=== PATIENT | female | born 1990 | race Caucasian/White ===

== ENCOUNTER 2016-12-17 15:53 | Inpatient (IN) | payer BC ==
[~2016-12-17] VITALS: Ht 162.6 cm; Wt 84.8 kg
[2016-12-17 18:39] VITALS: Ht 162.6 cm; Wt 84.8 kg
[2016-12-17 18:43] VITALS: BP 114/69; PULSE 94; RESP 18
[2016-12-17] MEDS ORDERED: PREN1TAB17 PO (18:47)
[2016-12-17] MEDS: LACTATED RINGER'S 1,000 ML IV SCH (18:58)
[2016-12-17] MEDS ORDERED: AMPICILLIN 2 GM/NS (PMX) 100 ML IV ONE (19:00)
[2016-12-17] MEDS ORDERED: LIDOCAINE 1% (MPF) 30 ML INJ INJ PRN (19:00)
[2016-12-17] MEDS ORDERED: BUTORPHANOL 2 MG INJ IV PRN (19:00)
[2016-12-17] MEDS ORDERED: OXYTOCIN 30 UNITS/LR 500 ML IV PRN (19:00)
[2016-12-17] MEDS ORDERED: MISOPROSTOL 200 MCG TAB PR PRN (19:00)
[2016-12-17] MEDS ORDERED: METHYLERGONOVINE 0.2 MG INJ IM PRN (19:00)
[2016-12-17] MEDS ORDERED: CARBOPROST 250 MCG INJ IM PRN (19:00)
[2016-12-17] MEDS ORDERED: OXYTOCIN 30 UNITS/LR 500 ML IV SCH ×3 (19:00→20:00)
[2016-12-17] MEDS ORDERED: IBUPROFEN 600 MG TAB PO PRN (19:00)
[2016-12-17] MEDS ORDERED: LACTATED RINGER'S 1,000 ML IV PRN (19:00)
[2016-12-17 19:17] LABS: ADD SCAN DIFF NO
[2016-12-17 19:19] LABS: BASOPHILS % 0.1 % (0.0-2.0); EOSINOPHILS # 0.1 10^3/ul (0.0-0.5); EOSINOPHILS % 0.9 % (0.0-7.0); HEMATOCRIT 39.6 % (37.0-47.0); HEMOGLOBIN 13.4 g/dl (12.0-16.0); LYMPHOCYTES # 1.5 10^3/ul (0.8-2.9); LYMPHOCYTES % 18.6 % (15.0-51.0); MEAN CORPUSCULAR HEMOGLOBIN 30.2 pg (29.0-33.0); MEAN CORPUSCULAR HGB CONC 33.8 g/dl (32.0-37.0); MEAN CORPUSCULAR VOLUME 89.2 fl (82.0-101.0); MEAN PLATELET VOLUME 10.6 fl (7.4-10.4); MONOCYTE # 0.5 10^3/ul (0.3-0.9); MONOCYTES % 6.8 % (0.0-11.0); NEUTROPHIL # 5.9 10^3/ul (1.6-7.5); NEUTROPHILS % 73.3 % (39.0-77.0); PLATELET COUNT 224 10^3/UL (140-415); RED BLOOD COUNT 4.44 10^6/ul (4.20-5.40); RED CELL DISTRIBUTION WIDTH 12.5 % (11.5-14.5)
[2016-12-17 19:34] LABS: INR 0.89; PARTIAL THROMBOPLASTIN TIME 24.3 Sec (25.0-35.0); PT RATIO 0.9
[2016-12-17] MEDS: AMPICILLIN 1 GM/NS (PMX) 50 ML IV SCH (23:57)
--- NOTE | 2016-12-18 01:29 | HP ---
Date/Time of Note Date/Time of Note DATE: 12/18/16 TIME: 01:26 OB - History Hx of Present Chief Complaint: induction of labor Estimated Due Date: Dec 21, 2016 : 3 Para: 2 Spontaneous : 0 Therapeutic : 0 Care: Good Care Ultrasounds: Normal mid trimester US Obstetrical Complications: None Medical Complications: None Past Family/Social History * Past Medical, Surgical, Family and Obstetric Histories reviewed from chart. GBS Status: Positive OB Admission Exam Vital Signs Vital Signs Vital Signs Date Time Temp Pulse Resp B/P Pulse Ox O2 Delivery O2 Flow Rate FiO2 12/17/16 18:43 98.1 94 18 114/69 Room Air Physical Exam HEENT: WNL Heart: Rhythm Normal Lungs: Clear Abdomen: WNL Extremities: Normal Reflexes: Normal Cervical Dilatation: 3cm Effacement: 50% Station: -2 Membranes: Intact Heart Rate: 130's Accelerations: Accelerations Present Decelerations: No Decelerations Last 72 hours Lab Results CBC & BMP 12/17/16 18:40 OB Assessment/Plan Reason for admission: induction of labor Plan: Induction Induction Method: per Pitocin Protocol DANE CLIFTON MD Dec 18, 2016 01:29
[2016-12-18] MEDS ORDERED: FENTAnyl 2MCG/ML-ROPIV 0.2% 100 ML ONE (01:53)
[2016-12-18] MEDS ORDERED: NALOXONE (0.4 MG/ML) INJ IV PRN (02:30)
[2016-12-18] MEDS ORDERED: FENTAnyl 2MCG/ML-ROPIV 0.2% 100 ML BAG EPI SCH (02:30)
[2016-12-18] MEDS: AMPICILLIN 1 GM/NS (PMX) 50 ML IV SCH (03:46)
[2016-12-18] MEDS: LACTATED RINGER'S 1,000 ML IV SCH (04:55)
--- NOTE | 2016-12-18 07:28 | LDN ---
Date/Time of Note Date/Time of Note DATE: 12/18/16 TIME: 07:24 Delivery Summary Weeks of Gestation 39 weeks and 4 days Placenta Delivered: Spontaneously Meconium: none Episiotomy: No Perineal laceration: 1 Laceration repair: Second degree perineal laceration Anesthesia type: Epidural Estimated blood loss: 400 Sponge & Needle done & correct: Yes All needle counts correct: Yes Any foreign bodies felt in the: No Problems: Delivery Information Sex Infant Sex: male Apgars 1 Minute: 8 5 Minute: 9 Suctioning Nose & mouth suctioned at licha: Yes Delee suction performed: No Umbilical Cord Umbilical cord with: 3 Vessels Cord presentations: nuchal cord Nuchal cord present X: 1 Cord Blood was obtained: Yes Mother & Baby Disposition Disposition Mom & Baby to Maternity; Good: Yes DANE CLIFTON MD Dec 18, 2016 07:28
[2016-12-18 08:45] VITALS: BP 114/80; PULSE 78; RESP 18
[2016-12-18] MEDS: LACTATED RINGER'S 1,000 ML IV* SCH ×2 (08:55→16:55)
[2016-12-18] MEDS ORDERED: ACETAMINOPHEN/CODEINE #3 TAB PO PRN (09:00)
[2016-12-18] MEDS ORDERED: CARBOPROST 250 MCG INJ IM PRN (09:00)
[2016-12-18] MEDS ORDERED: DIBUCAINE 1% 30 GM OINT PR PRN (09:00)
[2016-12-18] MEDS ORDERED: OXYTOCIN 30 UNITS/LR 500 ML IV PRN (09:00)
[2016-12-18] MEDS ORDERED: METHYLERGONOVINE 0.2 MG INJ IM PRN (09:00)
[2016-12-18] MEDS ORDERED: ACETAMINOPHEN 325 MG TAB PO PRN (09:00)
[2016-12-18] MEDS ORDERED: MISOPROSTOL 200 MCG TAB PR PRN (09:00)
[2016-12-18 09:30] VITALS: BP 115/58; PULSE 91; RESP 18
[2016-12-18] MEDS: SENNA/DOCUSATE NA (8.6MG/50MG) TAB PO SCH ×2 (09:43→21:00)
[2016-12-18] MEDS: WITCH HAZEL/GLYCERIN PAD PR PRN (09:44)
[2016-12-18 10:30] VITALS: BP 118/56; PULSE 94; RESP 17
[2016-12-18 12:00] VITALS: BP 114/60; PULSE 104; RESP 18
[2016-12-18] MEDS: BENZOCAINE 20% 56 ML SPRAY TOP PRN (12:16)
[2016-12-18] MEDS: IBUPROFEN 600 MG TAB PO SCH ×3 (12:17→23:48)
[2016-12-18 17:05] VITALS: BP 133/66; PULSE 74; RESP 18
[2016-12-18 20:30] VITALS: BP 122/58; PULSE 73; RESP 18
[2016-12-19] MEDS: BENZOCAINE 20% 56 ML SPRAY TOP PRN (00:11)
[2016-12-19 04:00] VITALS: BP 105/68; PULSE 84; RESP 18
[2016-12-19] MEDS: IBUPROFEN 600 MG TAB PO SCH ×4 (06:00→23:41)
[2016-12-19 07:13] LABS: ADD SCAN DIFF NO
[2016-12-19 07:17] LABS: BASOPHILS % 0.3 % (0.0-2.0); EOSINOPHILS # 0.1 10^3/ul (0.0-0.5); EOSINOPHILS % 1.2 % (0.0-7.0); HEMATOCRIT 36.9 % (37.0-47.0); HEMOGLOBIN 12.5 g/dl (12.0-16.0); LYMPHOCYTES # 2.3 10^3/ul (0.8-2.9); MEAN CORPUSCULAR HEMOGLOBIN 30.3 pg (29.0-33.0); MEAN CORPUSCULAR HGB CONC 33.9 g/dl (32.0-37.0); MEAN CORPUSCULAR VOLUME 89.3 fl (82.0-101.0); MEAN PLATELET VOLUME 10.7 fl (7.4-10.4); MONOCYTE # 0.6 10^3/ul (0.3-0.9); MONOCYTES % 6.3 % (0.0-11.0); NEUTROPHIL # 6.6 10^3/ul (1.6-7.5); NEUTROPHILS % 68.1 % (39.0-77.0); PLATELET COUNT 202 10^3/UL (140-415); RED BLOOD COUNT 4.13 10^6/ul (4.20-5.40); RED CELL DISTRIBUTION WIDTH 12.4 % (11.5-14.5); WHITE BLOOD COUNT 9.7 10^3/ul (4.8-10.8)
[2016-12-19 08:00] VITALS: BP 116/63; PULSE 63; RESP 18
[2016-12-19] MEDS: SENNA/DOCUSATE NA (8.6MG/50MG) TAB PO SCH ×2 (09:00→20:58)
[2016-12-19] MEDS: LANOLIN 7 GM TUBE TOP PRN (12:37)
[2016-12-19 16:00] VITALS: BP 120/83; PULSE 90; RESP 18
--- NOTE | 2016-12-19 19:12 | DS ---
Date/Time of Note Date/Time of Note DATE: 12/19/16 TIME: 19:11 Obstetrical Discharge Record Final Diagnosis Final Diagnosis: Term delivered Vaginal Delivery Obstetrical Delivery: Spontaneous Complications Augmentation: Yes Condition on Discharge Physical Assessment Voiding: Yes Bowel Movement: Yes Breast: Soft, non-tender Fundus: Firm Calf Tenderness: No Patient Condition: Stable DANE CLIFTON MD Dec 19, 2016 19:12
[2016-12-19 19:45] VITALS: BP 109/62; PULSE 90; RESP 18
[2016-12-19] MEDS: WITCH HAZEL/GLYCERIN PAD PR PRN (23:46)
[2016-12-20 04:30] VITALS: BP 112/71; PULSE 90; RESP 18
[2016-12-20] MEDS: BENZOCAINE 20% 56 ML SPRAY TOP PRN ×2 (05:28→13:46)
[2016-12-20] MEDS: IBUPROFEN 600 MG TAB PO SCH ×2 (05:58→12:00)
[2016-12-20 07:45] VITALS: BP 97/56; PULSE 72; RESP 18
[2016-12-20] MEDS ORDERED: DIPHTH/TET/ACEL PERTUSS (ADULT) 0.5 ML VIAL IM* ONE (09:00)
[2016-12-20] MEDS: SENNA/DOCUSATE NA (8.6MG/50MG) TAB PO SCH (09:00)
[2016-12-20] MEDS ORDERED: VITAMIN A & D 5 GM OINT PACKET TOP ONE (13:44)
[2016-12-20] MEDS: WITCH HAZEL/GLYCERIN PAD PR PRN (13:46)
[2016-12-20] MEDS: LANOLIN 7 GM TUBE TOP PRN (13:46)
--- NOTE | 2016-12-23 09:38 | NSTRPT ---
NST Information Datetime Report Generated by CPN: 12/23/2016 09:38 Datetime: 12/17/2016 14:19 NST Information EGA: 39.2 Test Number: 5 Time on Monitor: 12/17/2016 14:39 Time off Monitor: 12/17/2016 15:12 NST Duration (Min): 33 Reason for NST: Other Reason for NST Other: hypocoiled umbilical cord Test and Monitor Explained: Monitor Explained; Test Explained; Verbalized Understanding Pulse: 90 Resp: 17 SBP: 110 DBP: 65 Test Evaluation NST Interventions: PO Hydration; Reposition Patient; Acoustic Stimulation Patient States Movement: Present Contraction Frequency: occasional, denies FHR Baseline : 130 Variability: Minimal - <=5bpm Accelerations: 15X15 Decelerations: None FHR Category: Category I NST Results: Questionable Comments: To u/s, PAULINA 15.5cm, cephalic EFW 4039gms (92%), AC 96% 1515-Dr Valles spoke with Dr Carlson to recommend delivery. Orders from Dr Carlson for EFW and adm it to [facility]. POC explained to pt _ spouse by Dr Valles, Pt to u/s for efw. [id number] _ PNR faxed to [facility] _ report called to Clarisse RN. Electronically Signed By E-Signature: with User ID: [id number] Datetime: 12/13/2016 14:00 NST Information EGA: 38.5 NST Duration (Min): 20 Datetime: 12/06/2016 14:40 NST Information EGA: 37.5 NST Duration (Min): 30 Datetime: 12/04/2016 14:50 NST Information EGA: 37.3 NST Duration (Min): 30 Datetime: 11/29/2016 15:11 NST Information EGA: 36.5 Datetime: 11/29/2016 14:53 NST Duration (Min): 32
== END 2016-12-20 14:30 | disposition home or self-care (01) | DRG 775 ==
LOC: L-D 18:19 → PP1 12-18 08:42 → EDSTATUS 12-21 15:52
PROVIDERS: ADMIT Obstetrics & Gynecology; ATTEND Obstetrics & Gynecology
PROC: 10E0XZZ Delivery of Products of Conception, External Approach (ICD-10-PCS; principal; 2016-12-18)
PROC: 0KQM0ZZ Repair Perineum Muscle, Open Approach (ICD-10-PCS; 2016-12-18)
PROC: 3E033VJ Introduction of Other Hormone into Peripheral Vein, Percutaneous Approach (ICD-10-PCS; 2016-12-18)
DX: O69.81X0 Labor and delivery complicated by cord around neck, without compression, not applicable or unspecified (principal); O70.1 Second degree perineal laceration during delivery; Z37.0 Single live birth; Z3A.39 39 weeks gestation of pregnancy
CPT/HCPCS: 62319; 85025; 85610; 85730; 86592; 86900; 86901; 87340; 90715; J0290; J2590; J3010; J7120